=== PATIENT | female | born 1975 | race Caucasian/White ===

== ENCOUNTER 2021-12-06 23:54 | Inpatient (IN) | payer OTHER ==
[2021-12-07] VITALS: BMI 24.7
[2021-12-07] MEDS ORDERED: LACTATED RINGERS SOLUTION 1000 ML INFUS.BAG IV ONE (01:14)
[2021-12-07] MEDS ORDERED: FAMOTIDINE 20 MG/50 ML IVPB 20 MG/50 ML MG IVPB ONE ×2 (01:14→01:18)
[2021-12-07] MEDS ORDERED: ACETAMINOPHEN 1000 MG/100 ML BAG IVPB ONE (01:14)
[2021-12-07] MEDS ORDERED: morphine CARPU-JECT 4 MG/1 ML DISP.SYRIN IVPUSH ONE ×2 (01:18→05:45)
[2021-12-07] MEDS ORDERED: ACETAMINOPHEN INJECTION 100 ML IVPB ONE ×2 (01:18→08:04)
[2021-12-07] MEDS ORDERED: morphine SULFATE 4 MG/ML VIAL ONE ×2 (01:19→05:56)
[2021-12-07 01:58] LABS: BASO % 0.3 % (0-2.0); HEMATOCRIT 44.6 % (32.4-45.2); HEMOGLOBIN 15.3 GM/dL (10.7-15.3); LYMPH % 9.4 % (8-40); MCH 29.6 pg (25.7-33.7); MCHC 34.3 g/dl (32.0-36.0); MEAN CELL VOLUME 86.2 fl (80-96); MEAN PLT VOLUME 7.4 fl (7.5-11.1); MONO % 2.6 % (3.8-10.2); NEUT % 87.7 % (42.8-82.8); PLATELET COUNT 327 10^3/uL (134-434); RBC 5.18 M/mm3 (3.60-5.2); RDW 13.2 % (11.6-15.6)
[2021-12-07 02:09] LABS: INR 1.06 (0.83-1.09); PROTHROMBIN TIME (PATIENT) 12.2 SEC (9.7-13.0)
[2021-12-07 02:12] LABS: ACTIVATED PTT 33.8 SECONDS (25.2-36.5)
[2021-12-07 02:15] LABS: CHLORIDE 102 mmol/L (98-107); SODIUM 138 mmol/L (136-145)
[2021-12-07 02:17] LABS: ALBUMIN 4.6 g/dl (3.4-5.0); ANION GAP 11 MMOL/L (8-16); BLOOD UREA NITROGEN 10.3 mg/dL (7-18); CALCIUM 9.6 mg/dL (8.5-10.1); CO2 26 mmol/L (21-32); GLUCOSE,RANDOM 110 mg/dL (74-106); MAGNESIUM 2.2 mg/dL (1.8-2.4)
[2021-12-07 02:20] LABS: CREATININE 0.7 mg/dL (0.55-1.3); SGOT/AST 20 U/L (15-37); SGPT/ALT 21 U/L (13-61)
[2021-12-07 02:22] LABS: BILIRUBIN,TOTAL 0.9 mg/dL (0.2-1); TOT PROT 8.9 g/dl (6.4-8.2)
[2021-12-07 02:23] LABS: ALK PHOS 78 U/L (45-117)
[2021-12-07 03:14] LABS: LIPASE 65 U/L (73-393)
[2021-12-07] MEDS ORDERED: LORazepam 0.5 MG TABLET PO ONE (05:45)
[2021-12-07] MEDS ORDERED: LORazepam 0.5 MG TABLET ONE (05:57)
[2021-12-07] MEDS ORDERED: ONDANSETRON 4 MG/2 ML VIAL IVPB ONE (07:39)
[2021-12-07] MEDS ORDERED: ONDANSETRON 4 MG/2 ML VIAL ONE (08:04)
[2021-12-07] MEDS: ACETAMINOPHEN 1000 MG/100 ML BAG IVPB PRN ×2 (08:10→16:36)
[2021-12-07 08:14] LABS: EPI CELLS 10 /uL (0-25.1); HYALINE CASTS 0 /uL (0-3.1); URINE APPEARANCE CLEAR; URINE BACTERIA 613 /uL (0-1359); URINE BILIRUBIN NEGATIVE (NEGATIVE); URINE COLOR YELLOW; URINE GLUCOSE (UA) NEGATIVE (NEGATIVE); URINE KETONE NEGATIVE (NEGATIVE); URINE LEUK ESTERASE NEGATIVE (NEGATIVE); URINE NITRITE NEGATIVE (NEGATIVE); URINE PROTEIN NEGATIVE (NEGATIVE); URINE RBC 34 /uL (0-23.9); URINE UROBILINOGEN 0.2 mg/dL (0.2-1.0); URINE WBC 3 /uL (0-25.8)
[2021-12-07] MEDS: LACTATED RINGERS SOLUTION 1,000 ML/1,000 ML INFUS.BAG IV SCH ×2 (08:41→16:37)
[2021-12-07] MEDS: ONDANSETRON 4 MG/2 ML VIAL IVPUSH PRN ×2 (10:55→17:55)
[2021-12-07] MEDS ORDERED: KETOROLAC TROMETHAMINE 30 MG/1 ML VIAL IM ONE (11:15)
[2021-12-07 12:30] LABS: BASO % 0.4 % (0-2.0); EOS % 0.1 % (0-4.5); HEMATOCRIT 39.2 % (32.4-45.2); HEMOGLOBIN 13.1 GM/dL (10.7-15.3); LYMPH % 13.5 % (8-40); MCHC 33.3 g/dl (32.0-36.0); MEAN CELL VOLUME 87.1 fl (80-96); MEAN PLT VOLUME 7.1 fl (7.5-11.1); MONO % 4.9 % (3.8-10.2); NEUT % 81.1 % (42.8-82.8); PLATELET COUNT 278 10^3/uL (134-434); RDW 13.1 % (11.6-15.6); WHITE BLOOD COUNT 12.3 K/mm3 (4.0-10.0)
[2021-12-07 13:39] LABS: ALBUMIN 3.8 g/dl (3.4-5.0); CALCIUM 9.6 mg/dL (8.5-10.1)
[2021-12-07 13:40] LABS: MAGNESIUM 2.1 mg/dL (1.8-2.4)
[2021-12-07 13:42] LABS: CREATININE 0.7 mg/dL (0.55-1.3); PHOSPHOROUS 3.9 mg/dL (2.5-4.9)
[2021-12-07 13:44] LABS: BILIRUBIN,TOTAL 1.1 mg/dL (0.2-1); TOT PROT 7.1 g/dl (6.4-8.2)
[2021-12-07] MEDS ORDERED: morphine SULFATE 4 MG/ML VIAL IVPUSH ONE (16:55)
[2021-12-08 09:38] LABS: BASO % 0.2 % (0-2.0); EOS % 0.8 % (0-4.5); LYMPH % 20.8 % (8-40); MCH 29.4 pg (25.7-33.7); MCHC 33.2 g/dl (32.0-36.0); MEAN CELL VOLUME 88.4 fl (80-96); MEAN PLT VOLUME 7.6 fl (7.5-11.1); MONO % 6.9 % (3.8-10.2); NEUT % 71.3 % (42.8-82.8); PLATELET COUNT 262 10^3/uL (134-434); RBC 4.42 M/mm3 (3.60-5.2); RDW 13.4 % (11.6-15.6); WHITE BLOOD COUNT 9.2 K/mm3 (4.0-10.0)
[2021-12-08 09:58] LABS: CALCIUM 8.6 mg/dL (8.5-10.1)
[2021-12-08 09:59] LABS: ALBUMIN 3.5 g/dl (3.4-5.0); BLOOD UREA NITROGEN 11.1 mg/dL (7-18); MAGNESIUM 2.2 mg/dL (1.8-2.4)
[2021-12-08 10:02] LABS: CREATININE 0.7 mg/dL (0.55-1.3); PHOSPHOROUS 2.8 mg/dL (2.5-4.9)
[2021-12-08 10:03] LABS: BILIRUBIN,TOTAL 1.4 mg/dL (0.2-1); TOT PROT 6.8 g/dl (6.4-8.2)
[2021-12-08] MEDS ORDERED: ACETAMINOPHEN 1000 MG/100 ML BAG IVPB ONE (11:00)
[2021-12-08] MEDS: LACTATED RINGERS SOLUTION 1,000 ML/1,000 ML INFUS.BAG IV SCH ×2 (11:01→22:00)
[2021-12-09] MEDS: LACTATED RINGERS SOLUTION 1,000 ML/1,000 ML INFUS.BAG IV SCH ×3 (06:27→23:27)
[2021-12-09 09:27] LABS: BASO % 0.2 % (0-2.0); EOS % 0.4 % (0-4.5); HEMATOCRIT 37.2 % (32.4-45.2); HEMOGLOBIN 12.6 GM/dL (10.7-15.3); LYMPH % 18.8 % (8-40); MCH 29.3 pg (25.7-33.7); MCHC 33.8 g/dl (32.0-36.0); MEAN CELL VOLUME 86.6 fl (80-96); MEAN PLT VOLUME 7.4 fl (7.5-11.1); MONO % 4.3 % (3.8-10.2); NEUT % 76.3 % (42.8-82.8); PLATELET COUNT 258 10^3/uL (134-434); RDW 13.1 % (11.6-15.6); WHITE BLOOD COUNT 9.7 K/mm3 (4.0-10.0)
[2021-12-09 09:51] LABS: BLOOD UREA NITROGEN 9.3 mg/dL (7-18)
[2021-12-09 09:52] LABS: CALCIUM 8.4 mg/dL (8.5-10.1)
[2021-12-09 09:53] LABS: MAGNESIUM 2.1 mg/dL (1.8-2.4)
[2021-12-09 09:54] LABS: CREATININE 0.5 mg/dL (0.55-1.3); PHOSPHOROUS 3.1 mg/dL (2.5-4.9)
[2021-12-10 10:08] LABS: BASO % 0.6 % (0-2.0); EOS % 1.5 % (0-4.5); HEMATOCRIT 38.8 % (32.4-45.2); HEMOGLOBIN 12.9 GM/dL (10.7-15.3); LYMPH % 30.5 % (8-40); MCH 29.2 pg (25.7-33.7); MCHC 33.2 g/dl (32.0-36.0); MEAN PLT VOLUME 7.8 fl (7.5-11.1); MONO % 5.3 % (3.8-10.2); NEUT % 62.1 % (42.8-82.8); PLATELET COUNT 296 10^3/uL (134-434); RBC 4.41 M/mm3 (3.60-5.2); RDW 13.4 % (11.6-15.6); WHITE BLOOD COUNT 7.6 K/mm3 (4.0-10.0)
[2021-12-10 10:36] LABS: CALCIUM 9.4 mg/dL (8.5-10.1)
[2021-12-10 10:43] LABS: BLOOD UREA NITROGEN 9.6 mg/dL (7-18)
[2021-12-10 10:46] LABS: CREATININE 0.6 mg/dL (0.55-1.3)
[2021-12-11 13:50] VITALS: BP 113/67; PULSE 80; TEMP 98.3
== END 2021-12-11 14:20 | disposition home or self-care (01) | DRG 390 ==
LOC: JER 23:54 → JERBED 12-07 06:07 → J6S 12-07 10:32
PROVIDERS: ADMIT Internal Medicine; ATTEND Internal Medicine
PROC: 0D9670Z Drainage of Stomach with Drainage Device, Via Natural or Artificial Opening (ICD-10-PCS; principal; 2021-12-07)
DX: K56.50 Intestinal adhesions [bands], unspecified as to partial versus complete obstruction (principal)
CPT/HCPCS: 36415; 74018-TC-FY; 74019-TC-FY; 74176-TC; 76705-TC; 80048; 80053; 81003; 83690; 83735; 84100; 84484; 84702; 85025; 85610; 85730; 86850; 86900; 86901; 93005; 93010; 94010; 99285-25; C9803; U0003; U0005